=== PATIENT | female | born 1960 | race Caucasian/White ===

== ENCOUNTER 2019-04-07 12:56 | Emergency (ER) | payer OTHER, MEDICAID ==
[~2019-04-07] VITALS: Ht 165.1 cm; Wt 66.2 kg
--- NOTE | 2019-04-07 13:38 | NUR ---
ASHLEY CASTILLO AT BEDSIDE FOR EVAL.
[2019-04-07] MEDS ORDERED: HYDROCODONE/APAP 5/325MG 1 EACH TABLET ONE (13:49)
[2019-04-07] MEDS ORDERED: D5W IV ONE (14:00)
[2019-04-07] MEDS ORDERED: HYDROCODONE/APAP 5/325MG 1 EACH TABLET PO ONE (14:00)
[2019-04-07] MEDS ORDERED: CLINDAMYCIN IV ONE (14:00)
[2019-04-07 15:13] VITALS: BP 138/87
--- NOTE | 2019-04-07 15:13 | NUR ---
Patient discharged to home in stable condition. Written and verbal after care instructions given. Patient verbalizes understanding of instruction.IV removed. Catheter intact and site benign. Pressure and 4x4 applied to site. No bleeding noted.
== END 2019-04-07 15:14 | disposition home or self-care (01) ==
LOC: ER 12:56
DX: K04.7 Periapical abscess without sinus (principal); Z88.8 Allergy status to other drugs, medicaments and biological substances
CPT/HCPCS: 96365; 99283; J3490; J7060